=== PATIENT | female | born 1960 | race Two or more races ===

== ENCOUNTER 2023-10-03 00:20 | Emergency (ER) | payer MEDICARE, OTHER ==
[~2023-10-03] VITALS: Ht 154.9 cm; Wt 67.1 kg
[2023-10-03] MEDS ORDERED: LEVO25TA9 PO (00:41)
[2023-10-03] MEDS ORDERED: cholesterol pill PO (00:41)
[2023-10-03] MEDS ORDERED: HYDR-3972 PO (01:07)
[2023-10-03] MEDS ORDERED: METOCLOPRAMIDE HCL 10 MG TABLET ONE (01:09)
[2023-10-03] MEDS ORDERED: HYDROCODONE/APAP 5-325MG TABLET ONE (01:09)
[2023-10-03] MEDS: HYDROCODONE/APAP 5-325MG TABLET PO ONE (01:14)
[2023-10-03] MEDS: METOCLOPRAMIDE HCL 10 MG TABLET PO ONE (01:14)
[2023-10-03] MEDS ORDERED: BACITRACIN ZINC OINT 15 GM TUBE ONE (01:17)
[2023-10-03] MEDS: BACITRACIN ZINC OINT 15 GM TUBE TOP STA (01:21)
[2023-10-03 01:25] VITALS: BP 130/77; TEMP 98; O2SAT 97
== END 2023-10-03 01:26 | disposition home or self-care (01) ==
LOC: ER 00:23
DX: S00.83XA Contusion of other part of head, initial encounter (principal); E78.5 Hyperlipidemia, unspecified; E03.9 Hypothyroidism, unspecified; Z98.890 Other specified postprocedural states; Z79.899 Other long term (current) drug therapy; W18.39XA Other fall on same level, initial encounter; Y93.89 Activity, other specified; Y92.89 Other specified places as the place of occurrence of the external cause; Y99.8 Other external cause status
CPT/HCPCS: A4606; A4663; J8597

== ENCOUNTER 2024-09-18 22:49 | Emergency (ER) | payer MEDICARE, OTHER ==
[~2024-09-18] VITALS: Ht 157.5 cm; Wt 63.5 kg
[~2024-09-18 22:49] MED LIST: HYDR-3972 PO; LEVO25TA9 PO; cholesterol pill PO
[2024-09-19 01:21] LABS: BASOPHILS # (AUTO) 0.1 K/UL (0.0-0.2); BASOPHILS % (AUTO) 0.9 % (0.0-2.0); EOSINOPHILS # (AUTO) 0.4 K/uL (0.0-0.7); EOSINOPHILS % (AUTO) 3.3 % (0.0-7.0); HEMATOCRIT 36.4 % (31.2-41.9); HEMOGLOBIN 12.1 g/dL (10.9-14.3); LYMPHOCYTES # (AUTO) 2.5 K/uL (0.8-4.8); LYMPHOCYTES % (AUTO) 22.7 % (20.5-51.5); MEAN CORPUSCULAR HEMOGLOBIN 29.8 uug (24.7-32.8); MEAN CORPUSCULAR HGB CONC 33 g/dL (32.3-35.6); MEAN CORPUSCULAR VOLUME 89.5 fL (75.5-95.3); MONOCYTES # (AUTO) 0.8 K/uL (0.1-1.30); MONOCYTES % (AUTO) 6.7 % (0.0-11.0); NEUTROPHILS # (AUTO) 7.4 K/uL (1.8-8.9); NEUTROPHILS % (AUTO) 66.4 % (38.5-71.5); PLATELET COUNT (AUTO) 299 K/uL (179-408); RED BLOOD CELL COUNT(AUTO) 4.07 MIL/uL (3.63-4.92); RED CELL DISTRIBUTION WIDTH 13.5 % (12.3-17.7); WHITE BLOOD COUNT (AUTO) 11.2 K/uL (3.8-11.8)
[2024-09-19 01:25] LABS: DIFFERENTIAL COMMENT 1
[2024-09-19 01:29] LABS: CARBON DIOXIDE 27 mmol/L (21-32); CHLORIDE 106 mmol/L (98-107); GLUCOSE 114 mg/dL (74-106); POTASSIUM 3.7 mmol/L (3.5-5.1); SODIUM SERUM 144 mmol/L (136-145); UREA NITROGEN, BLOOD 19 mg/dL (7-18)
[2024-09-19 01:35] LABS: ALANINE AMINOTRANSFERASE 26 U/L (14-59); ALBUMIN 3.7 g/dL (3.4-5.0); ALKALINE PHOSPHATASE 72 U/L (50-136); ASPARTATE AMINOTRANSFERASE 20 U/L (15-37); BILIRUBIN,DIRECT 0.1 mg/dL (0.0-0.2); BILIRUBIN,TOTAL 0.3 mg/dL (0.2-1.0); TOTAL PROTEIN, SERUM 8.2 g/dL (6.4-8.2)
[2024-09-19] MEDS ORDERED: ALBU8.5H8 INH (03:37)
[2024-09-19 04:01] VITALS: BP 126/83; O2SAT 96
== END 2024-09-19 03:51 | disposition home or self-care (01) ==
LOC: ER 23:00
DX: J40 Bronchitis, not specified as acute or chronic (principal); R07.9 Chest pain, unspecified; R10.9 Unspecified abdominal pain; R94.31 Abnormal electrocardiogram [ECG] [EKG]; E03.9 Hypothyroidism, unspecified; E78.5 Hyperlipidemia, unspecified; Z79.890 Hormone replacement therapy; Z88.7 Allergy status to serum and vaccine; Z90.49 Acquired absence of other specified parts of digestive tract; Z91.041 Radiographic dye allergy status
CPT/HCPCS: 36415; 71045; 83690; 84484; 85025; A4606; A4663